=== PATIENT | male | born 1950 | race Caucasian/White ===

== ENCOUNTER → 2021-02-10 | Outpatient (CLI) | payer OTHER, MEDICARE ==
[~2021-02-10] MED LIST: CLOPIDOGREL75 MG PO; COMBIGAN EYE DR10 ML OPHTHALMIC; DILTIAZEM HCL120 M1 PO; HYDROCHLOROTHIA25 M1 PO; LOSARTAN POTAS100 MG PO; LUMIGAN2.5 M1 OPHTHALMIC; METFORMIN HCL1000 MG PO; PRAVACHOL40 MG PO; STOOL SOFTENER100 MG PO
[2021-02-10 09:04] LABS: HEMATOCRIT 37.9 % (42.0-52.0); HEMOGLOBIN 12.6 gm/dL (14.0-18.0); MCH 29.6 pg (26.0-34.0); MCHC 33.2 g/dL (28.0-37.0); MCV 89.4 fL (80.0-100.0); RBC 4.24 mil/uL (4.50-6.00); RDW 13.8 % (10.5-14.5); WBC 6.5 thou/uL (4.0-11.0)
--- NOTE | 2021-02-10 09:12 | EKG ---
[place] [address] [facility] [place] [address] ELECTROCARDIOGRAM REPORT Name: CARROLL PENNY [id number] Admission: 02/10/21 Attend Phys: Sonu Rm MD Discharge: Date of : 48 Report #: [id number] [facility] Test Date: 2021-02-10 Test Time: 09:00:02 Pat Name: CARROLL PENNY Department: Room: Gender: Human Resources Safety Manager: Christal BAE : 1950 Requested By: Sonu Rm Order Number: [id number] : Matthew Adams Measurements Intervals Jber Rate: 57 P: 25 WV: 162 QRS: 24 QRSD: 104 T: 19 QT: 432 QTc: 421 Interpretive Statements Sinus rhythm Inferior infarct, old No previous ECG available for comparison Electronically Signed On 02-10-2021 9:12:28 CDT by Matthew Adams [email or web address] <ELECTRONICALLY SIGNED> By: Matthew Adams MD, [facility] 02/10/21 0912 09 9 Matthew Adams MD, FACC /EPI
[2021-02-10 09:21] LABS: INR 0.98; PROTIME 10.7 Seconds (10.5-12.1)
[2021-02-10 09:27] LABS: URINE BILIRUBIN NEGATIVE (Negative); URINE BLOOD NEGATIVE (Negative); URINE CLARITY CLEAR; URINE COLOR YELLOW; URINE GLUCOSE-RANDOM* TRACE (Negative); URINE KETONES NEGATIVE (Negative); URINE LEUKOCYTES-REFLEX TRACE (Negative); URINE NITRITE-REFLEX NEGATIVE (Negative); URINE PROTEIN (DIPSTICK) NEGATIVE (Negative); URINE SPECIFIC GRAVITY 1.015 (1.005-1.035); URINE UROBILINOGEN 0.2 E.U./dl (0.2-1.0)
[2021-02-10 09:48] LABS: ALBUMIN 3.9 g/dL (3.4-5.0); CALCIUM 9.5 mg/dL (8.5-10.1); CREATININE 1.2 mg/dL (0.7-1.3); POTASSIUM 4.3 mmol/L (3.5-5.1)
[2021-02-10 23:06] LABS: GLYCOHEMOGLOBIN (HGB A1C) 8.1 % (4.8-5.6)
== END ==
LOC: PAC 07:46
PROVIDERS: ATTEND Orthopaedic Surgery
DX: Z01.818 Encounter for other preprocedural examination (principal); I25.2 Old myocardial infarction; Z98.890 Other specified postprocedural states

== ENCOUNTER 2021-02-27 08:50 | Observation (INO) | payer OTHER, MEDICARE ==
[~2021-02-27] VITALS: Ht 177.8 cm; Wt 94.3 kg
[2021-02-27 09:59] VITALS: BP 152/77
--- NOTE | 2021-02-27 19:55 | NUR ---
ASSUMED PT CARE AROUND 1430. PT HAD RT TKA. PT ALERT X ORIENTED X4. ON ROOM AIR. IV LEFT HAND. HAS ALEX DRESSING, TEDS/SCDS ON.PT HAS NON INSULIN DEPENDENT DIABETES. NO C/O PAIN OR N/V. TOLERATING FLUIDS AND DIET. ABND DAUGHTER IN THE ROOM. VOIDED ONE TIME DURING THYE SHIFT. ON REGULAR DIET. ADM HISTORY , ADM EDUCATION AND ASSESMENTS COMPLETE. HOURLY ROUNDING DONE. SHIFT TREPORT GIVEN TO PEDIATRIC REGISTERED NURSE.
[2021-02-27 20:20] VITALS: BP 169/100
--- NOTE | 2021-02-28 00:26 | NUR ---
ASSUMED PT CARE AT 1900.PT WAS OBSERVED WATCHING TV IN THE COMPANY OF HIS FAMILY.R KNEE BABAKG C/D/I.SCD,ЮЛИЯ VAZQUEZ AND POLAR PAC IN PLACE.PT ENCOURAGED TO USE HIS INCENTIVE SPIROMETER WHILE AWAKE.NO CONCERNS VOICED SO FAR.PT ABLE TO MAKE HIS NEEDS KNOWN.CALL LIGHT WITHIN REACH.
[2021-02-28 06:37] VITALS: BP 160/95
[2021-02-28 08:14] VITALS: BP 159/100
--- NOTE | 2021-02-28 09:10 | O ---
[facility] [place] [address] OPERATIVE REPORT Name: CARROLL PENNY Room #: 435-P [facility] Rowan#: [id number] Admission: 02/27/21 Attend Phys: Sonu Rm MD Discharge: Date of : 48 Report #: [id number] THIS REPORT FOR: cc: Leo Marroquin,Leo Sandhu,Sonu Reed MD ~ DATE OF SERVICE: 02/27/2021 PREOPERATIVE DIAGNOSIS: Right knee osteoarthritis. POSTOPERATIVE DIAGNOSIS: Right knee osteoarthritis. PROCEDURE: Right total knee arthroplasty using Navio robotic assistance. REFERRING PHYSICIAN: Sonu Rm M.D. DRYWALL HANGER HELPER: Renu Schaefer PA-C INDICATION FOR DRYWALL HANGER HELPER: Throughout the case extensive retraction, manipulation of the knee was required. This is supported to me by my assistant front office manager. ANESTHESIA: LMA with adductor canal block. IMPLANTS: Ybarra and Nephew size 6 Journey II BCS cobalt chrome femur, a size 5 tibia, size 9 constrained polyethylene and size 35 patella. TOURNIQUET TIME: 54 minutes. ESTIMATED BLOOD LOSS: 25 mL COMPLICATIONS: None. SPECIMENS: None. CONDITION UPON LEAVING OR: Stable. INDICATION FOR PROCEDURE: The patient is a 70-year-old gentleman with severe right knee osteoarthritis, who failed conservative measures for this and after discussion with him, he elected for right total knee arthroplasty. DESCRIPTION OF PROCEDURE: Risks, benefits, alternatives, complications were discussed in detail with the patient including but not limited to risk of anesthesia, risk of damage to nerves, arteries, blood vessels, DVT, PE, infection, bleeding, and need for reoperation. Informed consent was obtained from the patient. Right knee was appropriately marked in the preoperative holding area. IV Ancef was given for preoperative antibiotics. He was brought [address] [address] OPERATIVE REPORT Name: CARROLL PENNY Room #: 435-P [facility] Leda Donahue#: [id number] Admission: 02/27/21 Attend Phys: oSnu Rm MD Discharge: Date of : 48 Report #: [id number] to the operating room and placed in supine position on the operating room table. LMA anesthesia was induced without complication. Tourniquet was placed on the right thigh. Right lower extremity was prepped and draped in normal sterile fashion. Timeout was performed properly identifying the patient and procedure as well as the instrumentation and implants. All in the operating room in agreement. Right lower extremity was exsanguinated, tourniquet was inflated. Tourniquet time was 54 minutes. Standard midline approach to knee was made with 10 blade through the skin. Dissection was taken down sharply to the fascia and deep flaps were developed medially and laterally. Fresh 10 blade was used to make a medial parapatellar arthrotomy and the knee was inspected. There was severe medial compartment osteoarthritis with moderate lateral compartment and patellofemoral compartment osteoarthritis. ACL and PCL were removed sharply. Reference pins were placed in the femur and the tibia. The knee was digitally mapped using the Navio robotic system. Intraoperative plan was made. We sized the size 5 tibia with a size 6 femur and a 10 spacer. After acceptance of the intraoperative plan, the distal femoral cut was made with Navio bur. Distal femoral cutting block was pinned in place and chamfer cuts were made. Attention was turned to the tibia. Remainder of the menisci removed with Bovie cautery. Tibial resection guide was pinned in place using Navio for placement and tibial resection was made. Flexion and extension gaps were checked and found to be tight medially in extension. The medial osteophyte was removed from the tibia. A limited medial release was performed using the pie crust technique and this balanced the knee well medially. Tibia was sized and found to be a size 5. Size 5 tibial trial was placed, pinned and punched. A size 6 femoral trial was placed, box cut was made. This was then trialed with a size 9 polyethylene. The size 9 polyethylene demonstrated 1 mm laxity medially with 3 mm laterally and deep flexion. It was felt we can make up for this with a constrained implant. A 9 mm of bone was resected from the posterior surface of the patella and a size 35 patellar trial button was placed. Knee was taken through range of motion, found to be stable, found to have good patellar tracking. Trial components were removed. Bone ends were thoroughly irrigated with normal saline. Final size 5, tibia size 6 Journey II BCS cobalt chrome femur and a size 35 patella were cemented in place using standard cementation techniques. While the cement cured, a periarticular injection consisting of morphine, ropivacaine, epinephrine, Toradol was placed around the knee joint capsule. After the cement cured, tourniquet was deflated. Hemostasis was obtained with Bovie cautery. A final size 9 constrained polyethylene was placed. A gram of vancomycin was placed deep in the joint. Fascia was closed with 0 Vicryl. Skin was closed with 2-0 Vicryl. Skin staple and a ALEX dressing was applied. The patient tolerated this procedure well and went to recovery room under care of anesthesia postoperatively. <ELECTRONICALLY SIGNED> By: Sonu Rm MD 02/28/21 0910 1453 1525 Sonu Rm MD /nt
--- NOTE | 2021-02-28 09:17 | NUR ---
ASSESSMENT: CM REVIEWED CHART AND SPOKE WITH PATIENT AND HIS AND SON AT THE BEDSIDE. PT IS S/P RIGHT TKA. PT IS FROM [place], [place]. PT REPORTS LIVING IN A HOUSE WITH HIS . PT HAS NO STEPS TO ENTER AND REPORTS HAVING A RAMP. PT REPORTS HIS BEDROOM AND ALL HIS NEEDS ARE ON THE MAIN LEVEL. PT NORMALLY IS INDEPENDENT WITH ADLS AND AMBULATION BUT DOES NEED A WALKER FOR DISCHARGE. PT HAS NO PREFERENCE OF SmartCare system. CM NOTIFIED LIASON AT PROVID[email or web address] TO PLEASE DELIVER A WALKER. PT REPORTS THAT HE HAS A SHOWER BENCH. PT STATES HE HAS OUTPATIENT THERAPY ARRANGED AT [facility] TO BEGIN ON SATURDAY AT 1000. PT IS TO WORK WITH THERAPY. CM WILL CONTINUE TO FOLLOW TO ASSIST NEEDED.
[2021-02-28 10:54] VITALS: BP 159/100
[2021-02-28 11:14] VITALS: BP 159/100
--- NOTE | 2021-02-28 11:38 | NUR ---
ASSUMED CARE OF PT AT 0700 THIS MORNING. PT WAS DAY 1 POSTOP FOR RT TOTAL KNEE REPLACEMENT. PT IS TO BE SEEN BY LIZETH DIOR AND DETERMINE IF HE CAN GO HOME THIS MORNING. ASSESSMENTS NOTED IN THE CHART OTHERWISE UNREMARKABLE. ALEX DRESSING C/D/I WITH POLAR PK AND BINDU WRAP. ЮЛИЯ HOSE KNEE HIGH BILAT. IV HAS BEEN DC'D AND PT IS READY TO LEAVE THE HOSPITAL. CLEARED BY LIZETH DIOR. MEDS AND TX GIVEN NEEDED AND SCHEDULED. PT SIGNED DISCHARGE PAPERWORK AND EDUCATION MATERIAL GIVEN.
== END 2021-02-28 12:29 | disposition home or self-care (01) ==
LOC: OR → 4S 15:15 → OR 15:16 → 4S 02-28 12:29 → OR 03-16 09:27
PROVIDERS: ADMIT Orthopaedic Surgery; ATTEND Orthopaedic Surgery
DX: M17.11 Unilateral primary osteoarthritis, right knee (principal); E78.5 Hyperlipidemia, unspecified; Z79.899 Other long term (current) drug therapy
CPT/HCPCS: 27447; S2900; 50010; 50101; 50415; 50954; 51130; 51225; 51320; 51412; 52001; 52282; 53000; 53078; 56527; 56528; 57095; 57103; 57110; 57127; 57180; 58239; 62110; 62900; 64043; 65060; 70005